=== PATIENT | male | born 2000 | race Caucasian/White ===

== ENCOUNTER → 2022-05-21 | Outpatient (CLI) | payer OTHER ==
[2022-05-21 15:50] LABS: ALBUMIN 4.9 gm/dL (3.5-5.0); BILIRUBIN,TOTAL 0.8 mg/dL (0.2-1.2); CALCIUM 10.1 mg/dL (8.4-10.2); CREATININE, serum 1.15 mg/dL (0.72-1.25); POTASSIUM 4.2 mmol/L (3.5-4.5); TOTAL PROTEIN 7.6 gm/dL (6.2-8.1)
== END ==
LOC: COL.LAB 15:09
DX: E83.52 Hypercalcemia (principal)